=== PATIENT | male | born 2005 | race Caucasian/White ===

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

== ENCOUNTER 2025-03-10 18:53 | Emergency (ER) | payer MEDICAID ==
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
[2025-03-10 19:03] VITALS: TEMP 98
[2025-03-10] MEDS ORDERED: MOTRIN 400 MG ONE (20:58)
[2025-03-10] MEDS ORDERED: NORCO 5/325 MG ONE ×2 (20:59→21:03)
[2025-03-10] MEDS: MOTRIN 400 MG PO ONE (21:00)
[2025-03-10] MEDS: NORCO 5/325 MG PO ONE ×2 (21:00→21:04)
[2025-03-10 22:10] VITALS: BP 131/81; PULSE 80; RESP 20; O2SAT 99
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
== END 2025-03-10 22:11 | disposition home or self-care (01) ==
LOC: ED 18:53
DX: Z04.1 Encounter for examination and observation following transport accident (principal); M25.512 Pain in left shoulder; M79.622 Pain in left upper arm; M25.522 Pain in left elbow; M79.632 Pain in left forearm; M25.532 Pain in left wrist; Z72.0 Tobacco use